=== PATIENT | female | born 1970 | race Caucasian/White ===

== ENCOUNTER 2018-12-19 11:37 | Observation (INO) ==
--- NOTE | 2018-12-19 14:56 | Emergency Department Note ---
Addendum entered and electronically signed by Colton Carroll 12/19/18 20:04: MDM: Pt here for complaint of RUQ abdominal pain. Initial history and physical exam revealed concern for biliary cholic, pancreatitis, and symptomatic cholelithiasis. Less likely diagnoses, including cholecystitis and cholangitis, were considered but unlikely due to no fever, chills, jaundice, and description of RUQ pain. Initial evaluation included CBC, chemistries, liver functions, lipase, and UA. RUQ ultrasound was also ordered. Lab work was grossly unremarkable. RUQ ultrasound revealed biliary sludge without signs of cholecystitis. General surgery was contacted for further recommendations. At the recommendation of Dr. Rahman, pt was kept NPO and scheduled as add-on surgery for cholecystectomy. General surgery accepted patient for admission for biliary cholic. ED course: Pt here for complaint of RUQ abdominal pain. Initial history and physical exam revealed concern for biliary cholic, pancreatitis, and symptomatic cholelithiasis. Less likely diagnoses, including cholecystitis and cholangitis, were considered but unlikely due to no fever, chills, jaundice, and description of RUQ pain. Initial evaluation included CBC, chemistries, liver functions, lipase, and UA. RUQ ultrasound was also ordered. Lab work was grossly unremarkable. RUQ ultrasound revealed biliary sludge without signs of cholecystitis. General surgery was contacted for further recommendations. Roe atment options and general surgery recommendations discussed with patient. At the recommendation of Dr. Rahman, pt was kept NPO and scheduled as add-on surgery for cholecystectomy. General surgery accepted patient for admission. Original Note: Disposition Clinical Impression: Biliary colic Disposition: Admitted As Inpatient Condition: Good Referrals: NONE,PCP [Primary Care Provider] - Forms: ED Satisfaction Letter, Work/School Release Time of Disposition: 17:42 Abdominal Pain HPI - General Chief Complaint: ED Abdominal Pain Stated Complaint: "gallbladder" Time Seen by Provider: 12/19/18 14:18 Source: patient Limitations: no limitations Nursing Notes Reviewed: Yes Vital Signs Reviewed: Yes - History of Present Illness HPI Narrative: Ms. Sahni is a 48F who presented today complaining of right upper quadrant abdominal pain which started on Sunday. She describes the pain as sharp at the border of her ribs on the right side. States the pain is worse when she tries to eat or drink. She does admit to some accompanying nausea and diarrhea, but no vomiting. Denies any fever or chills. She does have a history of appendectomy and hysterectomy. Denies any previous gallbladder pathology or workup. Denies any chest pain, or shortness of breath. Pain Scale: 7 - Related Data Previous Rx's Medication Instructions Recorded Cyclobenzaprine [Flexeril] 10 mg PO TID #15 tablet 02/13/18 methylPREDNISolone [Medrol] 4 mg PO TAPER #21 tablet 02/13/18 Allergies Allergy/AdvReac Type Severity Reaction Status Date / Time No Known Allergies Allergy Verified 02/13/18 10:17 All systems ED: reviewed and negative except as stated. Review of Systems: As Per HPI Constitutional: Denies: fever, chills, weakness Cardiovascular: Denies: chest pain, palpitations, dyspnea on exertion, syncope Respiratory: Denies: cough, dyspnea, wheezes Gastrointestinal: Reports: abdominal pain, nausea, vomiting, diarrhea. Denies: constipation, hematemesis, melena, hematochezia Abdominal Pain PMH - Past Medical History Medical history: Reports: no medical history Female Surgical History: Reports: appendectomy, hysterectomy Psychiatric history: Reports: no psych history - Social History Smoking status: Never smoker Alcohol use: Reports: none Drug use: Reports: none Physical Exam - General Limitations: no limitations General appearance: alert, in no apparent distress - Head Head exam: atraumatic, normocephalic, normal inspection - Eye Eye exam: Present: normal appearance, PERRL, EOMI. Absent: scleral icterus - ENT ENT exam: normal exam, normal oropharynx, mucous membranes moist - Neck Neck exam: Present: normal inspection, full ROM, trachea midline - Chest Chest inspection: Present: normal inspection, symmetric chest wall rise - Respiratory Respiratory exam: Present: normal lung sounds bilaterally - Cardiovascular Cardiovascular exam: Present: regular rate, normal rhythm, normal heart sounds, +S1, +S2 - Abdominal Exam Abdominal exam: Present: soft, Non-Tender. Absent: tenderness, distention, guarding, rebound, rigidity, organomegaly, Casey's sign - Extremities Exam Extremities exam: Present: normal inspection, full ROM. Absent: tenderness, pedal edema, calf tenderness - Neurological Exam Neurological exam: Present: alert, oriented X3 - Psychiatric Psychiatric exam: Present: normal affect, normal mood - Skin Skin exam: Present: warm, dry, intact, normal color Course - Reevaluation(s) Reevaluation #1: Pt has no new complaints. Discussed lab results and RUQ ultrasound. Currently awaiting call from general surgery for further recommendations. Time: 17:10 - Consultations Consultation #1: Spoke with Dr. Rahman of general surgery in regards to symptomatic b iliary cholic. She agreed to admit patient to her service and recommended pt be kept NPO for planned cholecystectomy this evening. Time: 17:30 Vital Signs Temperature 98.8 F 12/19/18 11:59 Pulse Rate 70 12/19/18 11:59 Respiratory Rate 70 12/19/18 11:59 Blood Pressure 128/87 12/19/18 11:59 O2 Sat by Pulse Oximetry 99 12/19/18 11:59 Temperature 98.8 F 12/19/18 11:59 Pulse Rate 70 12/19/18 11:59 Respiratory Rate 70 12/19/18 11:59 Blood Pressure 128/87 12/19/18 11:59 O2 Sat by Pulse Oximetry 99 12/19/18 11:59 Oxygen Delivery Oxygen Delivery Room Air Abdominal Pain - Medical Records Medical records reviewed: Yes I reviewed the patient's medical records. - Lab Data Lab results reviewed: Yes I reviewed the patient's lab results. Result diagrams: 12/19/18 14:56 12/19/18 14:56 Lab Results 12/19/18 12/19/18 12/19/18 Range/Units 14:56 14:56 14:58 WBC 7.7 (4.3-11.1) K/mcL RBC 4.31 (3.82-4.97) M/mcL Hgb 13.5 (11.5-15.4) g/dL Hct 40.1 (35.3-44.9) % MCV 93.0 (83.0-100.0) fL MCH 31.3 (28.0-33.3) pg MCHC 33.7 (31.6-35.5) g/dL RDW 12.3 (11.5-14.5) % Plt Count 217 (140-400) K/mcL MPV 9.6 (9.4-12.4) fL Immature Gran % 0.3 (0-4) % Seg Neutrophils % 63.0 % Lymphocytes % 29.4 % Monocytes % 6.1 % Eosinophils % 0.8 % Basophils % 0.4 % Neutrophils # 4.8 (1.6-8.9) K/mcL Lymphocytes # 2.3 (0.6-4.6) K/mcL Monocytes # 0.5 (0.0-1.3) K/mcL Eosinophils # 0.1 (0.0-0.6) K/mcL Basophils # 0.0 (0.0-0.2) K/mcL Sodium 139 (136-145) mEq/L Potassium 4.5 (3.5-5.1) mEq/L Chloride 105 (98-107) mEq/L Carbon Dioxide 29 (23-29) mEq/L BUN 18 (6-20) mg/dL Creatinine 0.75 (0.60-1.20) mg/dL Est GFR ( Amer) > 60 (> 60) Est GFR (Non-Af Amer) > 60 (> 60) BUN/Creatinine Ratio 24 (6-26) Glucose 94 (70-105) mg/dL Calculated Osmolality 290 (280-300) Calcium 9.4 (8.6-10.3) mg/dL Total Bilirubin 0.5 (0.3-1.0) mg/dL Direct Bilirubin 0.1 (0.0-0.2) mg/dL Indirect Bilirubin 0.4 (0.0-1.2) mg/dL AST 18 (13-39) Units/L ALT 14 (7-52) Units/L Alkaline Phosphatase 52 (34-104) Units/L Serum Total Protein 7.2 (6.4-8.9) g/dL Albumin 4.2 (3.5-5.7) g/dL Globulin 3.0 (2.4-3.5) g/dL Albumin/Globulin Ratio 1.4 (1.1-2.2) Lipase 17 (11-82) Units/L Urine Color Yellow (Yellow) Urine Clarity Clear (Clear) Urine pH 7.0 (5.0-8.0) pH Units Ur Specific [place] 1.012 (1.010-1.025) Urine Protein Negative (Neg-Trace) mg/dL Urine Glucose (UA) Normal (Normal) mg/dL Urine Ketones Negative (Negative) mg/dL Urine Blood Negative (Negative) Urine Nitrite Negative (Negative) Urine Bilirubin Negative (Negative) Urine Urobilinogen Normal (Normal) mg/dL Ur Leukocyte Esterase Negative (Negative) Ur Culture Indicated? NO (NO) - Radiology Data Radiology results reviewed: Yes I reviewed the patient's radiology results. Gallbladder Ultrasound 12/19/18 14:53 IMPRESSION: 1. Hepatic steatosis. 2. Trace gallbladder sludge. D/ / Arabella Servin MD / Arabella Servin MD Interpreting Provider: Arabella Servin MD
[2018-12-19 15:12] LABS: Bilirubin,Urine Negative (Negative); Blood,Urine Negative (Negative); Clarity,Urine Clear (Clear); Color,Urine Yellow (Yellow); Glucose,Urine (UA) Normal (Normal); Ketones,Urine Negative (Negative); Leukocyte Esterase,Urine Negative (Negative); Nitrite,Urine Negative (Negative); Protein,Urine Negative (Neg-Trace); Specific Gravity,Urine 1.012 (1.010-1.025); Urobilinogen,Urine Normal (Normal)
--- NOTE | 2018-12-19 15:18 | Emergency Department Note ---
Disposition Clinical Impression: Biliary colic Disposition: Admitted As Inpatient Condition: Good Referrals: NONE,PCP [Primary Care Provider] - Forms: ED Satisfaction Letter, Work/School Release General Adult HPI - General Chief complaint: ED Abdominal Pain Stated complaint: "gallbladder" Time Seen by Provider: 12/19/18 14:18 Source: patient Limitations: no limitations - History of Present Illness Pain Scale: 7 - Related Data Previous Rx's Medication Instructions Recorded Cyclobenzaprine [Flexeril] 10 mg PO TID #15 tablet 02/13/18 methylPREDNISolone [Medrol] 4 mg PO TAPER #21 tablet 02/13/18 Allergies Allergy/AdvReac Type Severity Reaction Status Date / Time No Known Allergies Allergy Verified 02/13/18 10:17 Past Medical History - Past Medical History Medical history: Reports: no medical history Psychiatric history: Reports: no psych history - Social History Smoking Status: Never smoker Smokeless Tobacco Status: No Alcohol use: Reports: none Drug use: Reports: none Physical Exam - General Limitations: no limitations General appearance: alert, in no apparent distress Course Vital Signs Temperature 98.8 F 12/19/18 11:59 Pulse Rate 70 12/19/18 11:59 Respiratory Rate 70 12/19/18 11:59 Blood Pressure 128/87 12/19/18 11:59 O2 Sat by Pulse Oximetry 99 12/19/18 11:59 Temperature 98.8 F 12/19/18 11:59 Pulse Rate 70 12/19/18 11:59 Respiratory Rate 70 12/19/18 11:59 Blood Pressure 128/87 12/19/18 11:59 O2 Sat by Pulse Oximetry 99 12/19/18 11:59 Oxygen Delivery Oxygen Delivery Room Air Medical Decision Making - Lab Data Result diagrams: 12/19/18 14:56 12/19/18 14:56 Lab Results 12/19/18 12/19/18 12/19/18 Range/Units 14:56 14:56 14:58 WBC 7.7 (4.3-11.1) K/mcL RBC 4.31 (3.82-4.97) M/mcL Hgb 13.5 (11.5-15.4) g/dL Hct 40.1 (35.3-44.9) % MCV 93.0 (83.0-100.0) fL MCH 31.3 (28.0-33.3) pg MCHC 33.7 (31.6-35.5) g/dL RDW 12.3 (11.5-14.5) % Plt Count 217 (140-400) K/mcL MPV 9.6 (9.4-12.4) fL Immature Gran % 0.3 (0-4) % Seg Neutrophils % 63.0 % Lymphocytes % 29.4 % Monocytes % 6.1 % Eosinophils % 0.8 % Basophils % 0.4 % Neutrophils # 4.8 (1.6-8.9) K/mcL Lymphocytes # 2.3 (0.6-4.6) K/mcL Monocytes # 0.5 (0.0-1.3) K/mcL Eosinophils # 0.1 (0.0-0.6) K/mcL Basophils # 0.0 (0.0-0.2) K/mcL Sodium 139 (136-145) mEq/L Potassium 4.5 (3.5-5.1) mEq/L Chloride 105 (98-107) mEq/L Carbon Dioxide 29 (23-29) mEq/L BUN 18 (6-20) mg/dL Creatinine 0.75 (0.60-1.20) mg/dL Est GFR ( Amer) > 60 (> 60) Est GFR (Non-Af Amer) > 60 (> 60) BUN/Creatinine Ratio 24 (6-26) Glucose 94 (70-105) mg/dL Calculated Osmolality 290 (280-300) Calcium 9.4 (8.6-10.3) mg/dL Total Bilirubin 0.5 (0.3-1.0) mg/dL Direct Bilirubin 0.1 (0.0-0.2) mg/dL Indirect Bilirubin 0.4 (0.0-1.2) mg/dL AST 18 (13-39) Units/L ALT 14 (7-52) Units/L Alkaline Phosphatase 52 (34-104) Units/L Serum Total Protein 7.2 (6.4-8.9) g/dL Albumin 4.2 (3.5-5.7) g/dL Globulin 3.0 (2.4-3.5) g/dL Albumin/Globulin Ratio 1.4 (1.1-2.2) Lipase 17 (11-82) Units/L Urine Color Yellow (Yellow) Urine Clarity Clear (Clear) Urine pH 7.0 (5.0-8.0) pH Units Ur Specific [place] 1.012 (1.010-1.025) Urine Protein Negative (Neg-Trace) mg/dL Urine Glucose (UA) Normal (Normal) mg/dL Urine Ketones Negative (Negative) mg/dL Urine Blood Negative (Negative) Urine Nitrite Negative (Negative) Urine Bilirubin Negative (Negative) Urine Urobilinogen Normal (Normal) mg/dL Ur Leukocyte Esterase Negative (Negative) Ur Culture Indicated? NO (NO) Attestation Statement - Attestation Attestation: I examined this patient and my medical decision-making was reviewed with the RAIL CAR REPAIR CARMAN/PA/Advanced Practice Nurse/Resident Physician. I agree with the documented findings, disposition and treatment plan as described except to the extent set forth below. Patient does have right upper quadrant abdominal pain and on my exam she does have moderate pain in this location. This area is normal in appearance without evidence of rash. No right lower quadrant pain. Abdomen is soft without rigidity, rebound, guarding. The patient is bright and alert. A ultrasound in addition to labs are ordered and these results are pending [id number]
[2018-12-19 15:22] LABS: Basophils % 0.4 %; Eosinophils # 0.1 K/mcL (0.0-0.6); Eosinophils % 0.8 %; Hematocrit 40.1 % (35.3-44.9); Hemoglobin 13.5 g/dL (11.5-15.4); Immature Granulocytes % 0.3 % (0-4); Lymphocytes # 2.3 K/mcL (0.6-4.6); Lymphocytes % 29.4 %; Mean Corpuscular HGB Conc 33.7 g/dL (31.6-35.5); Mean Corpuscular Hemoglobin 31.3 pg (28.0-33.3); Mean Platelet Volume 9.6 fL (9.4-12.4); Monocytes # 0.5 K/mcL (0.0-1.3); Monocytes % 6.1 %; Neutrophils # 4.8 K/mcL (1.6-8.9); Platelet Count 217 K/mcL (140-400); Red Blood Count 4.31 M/mcL (3.82-4.97); Red Cell Distribution Width 12.3 % (11.5-14.5)
[2018-12-19 15:42] LABS: Alanine Aminotransferase 14 Units/L (7-52); Albumin 4.2 g/dL (3.5-5.7); Albumin/Globulin Ratio 1.4 (1.1-2.2); Alkaline Phosphatase 52 Units/L (34-104); Aspartate Amino Transferase 18 Units/L (13-39); BUN/Creatinine Ratio 24 (6-26); Bilirubin,Direct 0.1 mg/dL (0.0-0.2); Bilirubin,Indirect 0.4 mg/dL (0.0-1.2); Bilirubin,Total 0.5 mg/dL (0.3-1.0); Blood Urea Nitrogen 18 mg/dL (6-20); Calcium 9.4 mg/dL (8.6-10.3); Carbon Dioxide 29 mEq/L (23-29); Chloride 105 mEq/L (98-107); Glucose 94 mg/dL (70-105); Lipase 17 Units/L (11-82); Osmolality,Calculated 290 (280-300); Potassium 4.5 mEq/L (3.5-5.1); Sodium 139 mEq/L (136-145); Total Protein 7.2 g/dL (6.4-8.9); eGFR For Non-African Americans > 60 (> 60)
[2018-12-19] MEDS ORDERED: CeFAZolin Syr 2,000MG/20 ML 2,000 MG/20 ML SYRINGE IVPB ONE (21:50)
--- NOTE | 2018-12-19 21:58 | Acute Care Surgery H&P ---
Date of Encounter: 12/19/18 Time of Encounter: 21:00 Assessment and Plan (1) Symptomatic cholelithiasis Current Visit: Yes Status: Acute The assessment and plan as outlined above was discussed with the patient and/or family members who expressed understanding and agreement. All questions were answered. Pt diagnosis of symptomatic cholelithiasis is discussed. Laparoscopic Cholecystectomy is recommended. Procedure for the surgery, risks and benefits are discussed in detail. Possible known complications for Laparoscopic Cholecystectomy are bleeding, infection, bile duct injury, bile leak, small intestine or stomach injury, stroke, DVT/PE, UT or . Pt understands these risks, which in this case are . Pt wishes to proceed with surgery as soon as possible. Informed consent is obtained. Pt condition is stable. Surgery is scheduled. (2) Biliary colic symptom Current Visit: Yes Status: Acute see above History of Present Illness Chief complaint: RUQ abd pain HPI: This 48 y/o pt presents to [facility] [place] ED c/o severe RUQ abdominal pain. Pt reports pain is severe and unrelenting. Pt c/o epigastric pain as well. Pt reports pain radiates into back. Pt reports intractible nausea and vomiting. Pt denies changes in BM. Pt denies CP or SOB. Pt denies fever. She has had multiple episodes of this and wants to have her gallbladder removed. Past Med Surg Social Fam HX - Past Medical History Medical history: no medical history Psychiatric history: no psych history - Social History Smoking Status: Never smoker Smokeless Tobacco Status: No Alcohol use: none Drug use: none Medications and Allergies Calcium Carb/Vitamin D3/Vit K1 [Viactiv 650 mg-12.5 Mcg Chew] 1 each PO DAILY 12/19/18 [History] Loratadine/Pseudophed (12 HR) [Claritin D (12HR)] 1 each PO BID PRN 12/19/18 [History] Multivit W-Mn/FA/Lycop/Lut/Ala [Multi-Betic Tablet] 1 each PO DAILY 12/19/18 [History] Naproxen Sodium [Aleve] 220 mg PO BID PRN 12/19/18 [History] Allergy/AdvReac Type Severity Reaction Status Date / Time No Known Allergies Allergy Verified 02/13/18 10:17 Review of Systems All systems PM: The remainder of the systems were reviewed and are negative - Constitutional as per HPI, anorexia, no chills, no excessive sweating, no fatigue, no fever(s), no night sweats, no weakness - EENT Nose, mouth and throat: dry mouth, no dizziness, no nasal congestion, no nasal discharge, no sinus pain, no sinus pressure, no sore throat - Cardiovascular no chest pain, no diaphoresis, no dyspnea, no edema - Respiratory no cough, no dyspnea, no wheezing - Gastrointestinal abdominal pain, belching, bloating, cramping, dyspepsia, heartburn, nausea, vomiting, no constipation, no diarrhea - Genitourinary Genitourinary: no difficulty urinating, no dysuria, no urinary frequency - Musculoskeletal back pain, no joint swelling, no limited range of motion, no neck pain - Integumentary dry skin, no pruritus, no rash, no wounds, no jaundice - Neurological no dizziness, no focal weakness, no weakness - Psychiatric no anxiety, no depression - Endocrine fatigue - Hematologic/Lymphatic no easy bleeding, no easy bruising General Surgery Exam Initial Vital Signs Temp Pulse Resp BP Pulse Ox 98.8 F 70 70 128/87 99 12/19/18 11:59 12/19/18 11:59 12/19/18 11:59 12/19/18 11:59 12/19/18 11:59 - General physical appearance moderate distress, moderate pain. negative: jaundice - Eyes PERRL, normal ocular movement. negative: icteric - ENT no congestion, dry mucosa. negative: nasal discharge - Neck no masses, no lymphadectomy, no venous distension - Respiratory normal respiratory effort, clear to auscultation - Cardiovascular Cardiovascular exam: Present: RRR. Absent: murmurs - Abdomen Abdomen general surgery: Present: bowel sounds present, soft, distended, tender, guarding. Absent: rebound - Genitourinary Present: normal external genitalia - Integumentary Integumentary general surgery: Present: warm and dry - Neurologic Present: CN 2-12 grossly intact - Musculoskeletal Present: normal posture - Psychiatric Psychiatric general surgery: Present: A&Ox3, appropriate Results - Labs 12/19/18 14:56 12/19/18 14:56 Diabetes panel 12/19/18 Range/Units 14:56 Sodium 139 (136-145) mEq/L Potassium 4.5 (3.5-5.1) mEq/L Chloride 105 (98-107) mEq/L Carbon Dioxide 29 (23-29) mEq/L BUN 18 (6-20) mg/dL Creatinine 0.75 (0.60-1.20) mg/dL Glucose 94 (70-105) mg/dL Calcium 9.4 (8.6-10.3) mg/dL AST 18 (13-39) Units/L ALT 14 (7-52) Units/L Alkaline Phosphatase 52 (34-104) Units/L Albumin 4.2 (3.5-5.7) g/dL Calcium panel 12/19/18 Range/Units 14:56 Calcium 9.4 (8.6-10.3) mg/dL Albumin 4.2 (3.5-5.7) g/dL Pituitary panel 12/19/18 Range/Units 14:56 Sodium 139 (136-145) mEq/L Potassium 4.5 (3.5-5.1) mEq/L Chloride 105 (98-107) mEq/L Carbon Dioxide 29 (23-29) mEq/L BUN 18 (6-20) mg/dL Creatinine 0.75 (0.60-1.20) mg/dL Glucose 94 (70-105) mg/dL Calcium 9.4 (8.6-10.3) mg/dL Adrenal panel 12/19/18 Range/Units 14:56 Sodium 139 (136-145) mEq/L Potassium 4.5 (3.5-5.1) mEq/L Chloride 105 (98-107) mEq/L Carbon Dioxide 29 (23-29) mEq/L BUN 18 (6-20) mg/dL Creatinine 0.75 (0.60-1.20) mg/dL Glucose 94 (70-105) mg/dL Calcium 9.4 (8.6-10.3) mg/dL Total Bilirubin 0.5 (0.3-1.0) mg/dL AST 18 (13-39) Units/L ALT 14 (7-52) Units/L Alkaline Phosphatase 52 (34-104) Units/L Albumin 4.2 (3.5-5.7) g/dL All other labs normal. - Imaging US - abdomen: image reviewed (Gallstones) - VTE Reasons for not Prescribing Prophylaxis: Treatment not Indicated - Low risk for VTE
[2018-12-19] MEDS ORDERED: 0.9 % Sodium Chloride 1,000 ML IVC SCH (22:00)
[2018-12-20] MEDS ORDERED: Ondansetron 4 MG/2 ML VIAL ONE (01:35)
[2018-12-20] MEDS ORDERED: Lidocaine -MPF 2% 2 ML VIAL ONE (01:35)
[2018-12-20] MEDS ORDERED: *HR* Rocuronium Bromide 50 MG/5 ML VIAL ONE (01:35)
[2018-12-20] MEDS ORDERED: Dexamethasone 4 MG/ML VIAL ONE (01:35)
[2018-12-20] MEDS ORDERED: *HR* Succinylcholine 200 MG/10 ML VIAL IVP ONE (01:35)
[2018-12-20] MEDS ORDERED: *HR* Propofol 200 MG/20 ML VIAL IVP ONE (01:36)
--- NOTE | 2018-12-20 02:11 | Anesthesia Evaluation PreOp ---
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 Other Medical History: Denies Any Significant HX Anesthesia History: No Prior Anesthetic Complications, Past Anesthesia (APPY, HYST) Alcohol Use: none Drug use: none Medications and Allergies Calcium Carb/Vitamin D3/Vit K1 [Viactiv 650 mg-12.5 Mcg Chew] 1 each PO DAILY 12/19/18 [History] Loratadine/Pseudophed (12 HR) [Claritin D (12HR)] 1 each PO BID PRN 12/19/18 [History] Multivit W-Mn/FA/Lycop/Lut/Ala [Multi-Betic Tablet] 1 each PO DAILY 12/19/18 [History] Naproxen Sodium [Aleve] 220 mg PO BID PRN 12/19/18 [History] Allergy/AdvReac Type Severity Reaction Status Date / Time codeine Allergy Itching Verified 12/20/18 01:51 - Meds/Allergy Pre-op Review Medications Reviewed: Yes Allergies Reviewed: Yes Anesthesia Results - Labs 12/19/18 14:56 12/19/18 14:56 Anesthesia Exam Vital Signs/O2 Sat/Glucose, Most Recent Temp Pulse Resp BP Pulse Ox 97.8 F 57 14 105/67 97 12/19/18 23:36 12/19/18 23:36 12/19/18 23:36 12/19/18 23:36 12/19/18 23:36 Blood Glucose* 94 Weight: 52 KG - BMI 19 NPO (# of Hours): >8 - HEENT Mallampati: I Teeth: Normal Oral Opening: Greater than 3 - Cardiac Rhythm: Regular - Pulmonary Breath Sounds: bilateral Clear Respiratory Effort: Symmetrical Anesthesia Assess/Plan ASA Score: 2, E Anesthetic Plan: General Monitoring Plan: Standard Monitors Recovery Plan: PACU
[2018-12-20] MEDS ORDERED: Acetaminophen IV 1,000 MG/100 ML INFUS..BTL IVPB ONE (02:12)
[2018-12-20] MEDS ORDERED: *HR* Meperidine 25 MG/ML SYRINGE IVP PRN (02:12)
[2018-12-20] MEDS ORDERED: *HR* Promethazine 25 MG/ML VIAL IVP PRN (02:12)
[2018-12-20] MEDS ORDERED: *HR* OxyCODONE Immed Rel 5 MG TABLET PO PRN (02:12)
[2018-12-20] MEDS ORDERED: Ondansetron 4 MG/2 ML VIAL IVP ONE ×2 (02:12→04:19)
[2018-12-20] MEDS ORDERED: Albuterol 2.5 MG/3 ML NEBULIZER IH ONE ×2 (02:12→04:19)
[2018-12-20] MEDS ORDERED: *HR* FentaNYL (PF) 100 MCG/2 ML VIAL ONE (02:20)
[2018-12-20] MEDS ORDERED: Neostigmine Methylsulfate 3 MG/3 ML SYRINGE ONE (02:21)
[2018-12-20] MEDS ORDERED: Ketorolac 30 MG/ML VIAL ONE (03:05)
--- NOTE | 2018-12-20 03:30 | Operative Note ---
Date of procedure: 12/20/18 Pre-op diagnosis: acute biliary colic with sympomatic cholelithiasis Post-op diagnosis: same Procedure: Laparoscopic Cholecystectomy Anesthesia: GETA Surgeon: Amanda Moreno Was there an preschool assistant director present: No Estimated blood loss (cc): 25 Specimen: gallbladder Condition: stable Disposition: PACU Procedure in Detail: This 48 year-old was taken to the operating room and placed in supine position. Anterior abdominal wall was prepped and draped in the usual sterile fashion. A 2 cm curvilinear incision is made in the infraumbilical area and subcutaneous tissues are dissected to the anterior rectus fascia. Fascia was grasped with a Kyra clamp and elevated. The fascia was divided. Posterior rectus fascia and peritoneum were elevated and divided in the same manner. A postoperative inserted and pneumoperitoneum was achieved. The patient is rotated to the left. Under direct visualization after the injection of 0.5% Marcaine a 5 mm port is inserted in suprapubic area and a 10-12 mm port is inserted in the left lower quadrant. Exploration of the intra-abdominal cavity reveals an acutely inflamed appendix. The appendix is grasped at the tip and elevated. The base of the appendix is identified. A rent was made in the mesoappendix near the base and a linear GE stapling devices stapled across the appendix at its base. White vascular reload was then used to staple across the mesoappendix. The appendix is removed from the intra-abdominal cavity using an Endo Catch bag. Copious irrigation was carried out in the right pericolic gutter Lee's pouch and pelvis. The fascia at the left lower quadrant port site is closed using 0 V icryl sutures in an endo-closure device. The pneumoperitoneum was allowed to escape. All ports are removed under direct visualization. Fascia at the infraumbilical incision was closed using 0 Vicryl suture. All skin incisions are closed using 4-0 Monocryl subcuticular stitches. Steri-Strips are placed. Sterile Band-Aids were placed. Patient tolerated procedure well was taken to PACU in good condition.
[2018-12-20] MEDS: *HR* HYDROmorphone (PF) 1 MG/ML SYRINGE IVP PRN ×2 (03:34→03:55)
--- NOTE | 2018-12-20 03:56 | Anesthesia Evaluation Post Op ---
Date of Encounter: 12/20/18 Time of Encounter: 04:08 - Discharge PostOp Status: Transfer Patient to floor (Patient's vital signs have been reviewed. Patient is stable postoperatively and has adequately recovered from anesthesia. Patient is determined to have stable airway patency and respiratory function including respiratory rate and oxygen saturation. Patient has a stable heart rate, blood pressure and adequate hydration. Patients mental status is acceptable. Patients temperature is appropriate. Pain and nausea are adequately controlled.)
[2018-12-20] MEDS ORDERED: 0.9 % Sodium Chloride 1,000 ML IVC SCH (04:19)
[2018-12-20] MEDS ORDERED: *HR* OxyCODONE/APAP 5/325 TABLET PO PRN (04:19)
[2018-12-20] MEDS ORDERED: Ketorolac 15 MG/ML VIAL IVP SCH (06:00)
[2018-12-20] MEDS ORDERED: ceFAZolin 1,000 MG in Water for inj. (sterile) 20 ML 10 ML IVP SCH (08:00)
--- NOTE | 2018-12-20 10:25 | Discharge Summary ---
<Good Irene - Last Filed: 12/20/18 10:48> - NOTES TO OUTPATIENT PROVIDER Notes to Outpatient Provider: Please follow with Dr. Payton Moreno in 4 weeks. Orders not resulted at time of discharge: Pending orders 12/20/18 03:14 Surgical Pathology [PTH] Routine Date of Encounter: 12/20/18 Time of Encounter: 10:23 - Discharge Diagnosis (1) Biliary colic symptom Priority: Primary Status: Acute (2) Symptomatic cholelithiasis Priority: Primary Status: Acute General Surgery Exam Initial Vital Signs Temp Pulse Resp BP Pulse Ox 98.8 F 70 70 128/87 99 12/19/18 11:59 12/19/18 11:59 12/19/18 11:59 12/19/18 11:59 12/19/18 11:59 - General physical appearance well developed, well nourished, no distress - Eyes PERRL, normal ocular movement - Respiratory normal expansion, normal respiratory effort, clear to auscultation - Cardiovascular Cardiovascular exam: Present: RRR, regular rhythm, no murmurs/rubs/gallops - Abdomen Abdomen general surgery: Present: bowel sounds present, soft, non tender - Incision Incision: Present: clean and dry, intact - Integumentary Integumentary general surgery: Present: warm and dry, no abnormal pigmentation - Psychiatric Psychiatric general surgery: Present: A&Ox3, appropriate, oriented to person, oriented to place, oriented to time, speech is normal, memory intact - Hospital Course Hospital course: Ms. Sahni is a 48 year old female with no significant past medical history who initially presented to [facility] ED complaining of right upper quadrant abdominal pain. Pain was severe and unrelenting. Additionally she reported intractable nausea and vomiting. This is having multiple times in the past. On exam, patient's abdomen was distended, tender to palpation especially in the right upper quadrant. Patient exhibited guarding. Gallbladder ultrasound was notable for trace gallbladder sludge. After further discussion with patient, patient decided to go to the OR with Dr. Payton Moreno for laparoscopic cholecystectomy. Patient tolerated procedure without difficulty. Postoperatively she reported no acute complaints. This morning upon evaluation, patient was resting comfortably. She is tolerating diet. We will advance diet. Plan to discharge patient home today. - Time Spent with Patient Total time spent providing and/or coordinating discharge services: Less than 30 minutes - Discharge Medications Prescriptions: New Ondansetron ODT [Zofran ODT] 4 mg SL Q8HR PRN 5 Days #15 tab.rapdis PRN Reason: Nausea Docusate [Colace] 100 mg PO BID 14 Days #28 capsule RX: Ibuprofen 800 mg PO Q8H 14 Days #42 tablet OxyCODONE Immed Rel [Roxicodone 5 MG] 5 mg PO Q8HR PRN 5 Days #15 tablet PRN Reason: Pain No Action RX: Loratadine/Pseudophed (12 HR) [Claritin D (12HR)] 1 each PO BID PRN PRN Reason: ALLERGIES Calcium Carb/Vitamin D3/Vit K1 [Viactiv 650 mg-12.5 Mcg Chew] 1 each PO DAILY Multivit W-Mn/FA/Lycop/Lut/Ala [Multi-Betic Tablet] 1 each PO DAILY Naproxen Sodium [Aleve] 220 mg PO BID PRN PRN Reason: Pain Home Medications: Calcium Carb/Vitamin D3/Vit K1 [Viactiv 650 mg-12.5 Mcg Chew] 1 each PO DAILY 12/19/18 [History] Multivit W-Mn/FA/Lycop/Lut/Ala [Multi-Betic Tablet] 1 each PO DAILY 12/19/18 [History] Naproxen Sodium [Aleve] 220 mg PO BID PRN 12/19/18 [History] RX: Loratadine/Pseudophed (12 HR) [Claritin D (12HR)] 1 each PO BID PRN 12/19/18 [History] Docusate [Colace] 100 mg PO BID 14 Days #28 capsule 12/20/18 [Rx] Ondansetron ODT [Zofran ODT] 4 mg SL Q8HR PRN 5 Days #15 tab.rapdis 12/20/18 [Rx] OxyCODONE Immed Rel [Roxicodone 5 MG] 5 mg PO Q8HR PRN 5 Days #15 tablet 0 12/20/18 [Rx] RX: Ibuprofen 800 mg PO Q8H 14 Days #42 tablet 12/20/18 [Rx] Allergies/Adverse Reactions: Allergy/AdvReac Type Severity Reaction Status Date / Time codeine Allergy Itching Verified 12/20/18 01:51 Date of admission: 12/19/18 19:26 Primary care physician: PCP NONE Discharging clinician: Good Irene Anticipated date of discharge: 12/20/18 Labs on day of discharge: Labs from last 24 hours 12/19/18 12/19/18 12/19/18 14:58 14:56 14:56 WBC 7.7 RBC 4.31 Hgb 13.5 Hct 40.1 MCV 93.0 MCH 31.3 MCHC 33.7 RDW 12.3 Plt Count 217 MPV 9.6 Immature Gran % 0.3 Seg Neutrophils % 63.0 Lymphocytes % 29.4 Monocytes % 6.1 Eosinophils % 0.8 Basophils % 0.4 Neutrophils # 4.8 Lymphocytes # 2.3 Monocytes # 0.5 Eosinophils # 0.1 Basophils # 0.0 Sodium 139 Potassium 4.5 Chloride 105 Carbon Dioxide 29 BUN 18 Creatinine 0.75 Est GFR ( Amer) > 60 Est GFR (Non-Af Amer) > 60 BUN/Creatinine Ratio 24 Glucose 94 Calculated Osmolality 290 Calcium 9.4 Total Bilirubin 0.5 Direct Bilirubin 0.1 Indirect Bilirubin 0.4 AST 18 ALT 14 Alkaline Phosphatase 52 Serum Total Protein 7.2 Albumin 4.2 Globulin 3.0 Albumin/Globulin Ratio 1.4 Lipase 17 Urine Color Yellow Urine Clarity Clear Urine pH 7.0 Ur Specific [place] 1.012 Urine Protein Negative Urine Glucose (UA) Normal Urine Ketones Negative Urine Blood Negative Urine Nitrite Negative Urine Bilirubin Negative Urine Urobilinogen Normal Ur Leukocyte Esterase Negative Ur Culture Indicated? NO - Impressions ITS Impressions Gallbladder Ultrasound 12/19/18 14:53 IMPRESSION: 1. Hepatic steatosis. 2. Trace gallbladder sludge. D/ / Arabella Servin MD / Arabella Servin MD Interpreting Provider: Arabella Servin MD - Patient Status Disposition: Home, Self-Care Condition: Good Functional capacity at discharge: independent ambulation Overall status at discharge: patient is progressing back to baseline - Discharge Instructions Instructions: Laparoscopic Cholecystectomy (DC) Follow Up With: Amanda Vides [Partnered Physician] - 01/21/19 8:20 am (Follow up as scheduled. ) NONE,PCP [Primary Care Provider] - Forms: Inpatient Work/School Release Additional Instructions: General Surgical Discharge Instructions 1. No pushing, pulling, or lifting greater than 15 lbs for 2-4 weeks (depending upon procedure). 2. You may shower beginning today, but no tub baths, soaking, or swimming for 2 weeks. 3. You may resume driving when you are off narcotics and are safe to react in a car. 4. Take ibuprofen every 8 hours for discomfort. If this does not relieve discomfort, you may take the as needed Percocet. Take narcotics as directed. Do not take more narcotics then directed and do not share your narcotics with any other person. Do not drink alcohol while on narcotics. 5. Take stool softeners (Colace) or a water based laxative (Miralax) while taking narcotics. You may hold for loose stools. 6. Report any fevers greater than 100.5F, increase abdominal discomfort, drainage that looks like pus, increased redness or pain at the surgical site, or any vomiting. 7. Report any pain in the calves, shortness of breath, or rapid heartbeat. 8. Follow-up in the office as directed. 9. If you were prescribed antibiotics, do not stop them without talking to your provider. - Diet and Activity Activity: resume usual activities as tolerated Diet: advance to your usual diet <Gomez Bond - Last Filed: 12/20/18 17:08> Orders not resulted at time of discharge: Pending orders 12/20/18 03:14 Surgical Pathology [PTH] Routine Date of Encounter: 12/20/18 General Surgery Exam Initial Vital Signs Temp Pulse Resp BP Pulse Ox 98.8 F 70 70 128/87 99 12/19/18 11:59 12/19/18 11:59 12/19/18 11:59 12/19/18 11:59 12/19/18 11:59 - Hospital Course Hospital course: Ms. Sahni is a 48 year old female - Time Spent with Patient Total time spent providing and/or coordinating discharge services: Date of admission: 12/19/18 19:26 Primary care physician: PCP NONE Labs on day of discharge: Labs from last 24 hours 12/19/18 23:47 POC Glucose 94 - Impressions ITS Impressions Gallbladder Ultrasound 12/19/18 14:53 IMPRESSION: 1. Hepatic steatosis. 2. Trace gallbladder sludge. D/ / Arabella Servin MD / Arabella Servin MD Interpreting Provider: Arabella Servin MD - Attending Attestation patient seen and examined. i have reviewed all labs, imaging, and notes. i agree with the above assessment and plan.
[2018-12-20 10:49] VITALS: BP 117/66
== END 2018-12-20 11:47 | disposition home or self-care (01) ==
LOC: 3ANU 11:37 → EMEROOARM 11:37 → 3ANU 19:56
PROVIDERS: ADMIT Surgery; ATTEND Surgery